=== PATIENT | female | born 1995 | race Caucasian/White ===

== ENCOUNTER 2021-12-07 09:41 | Inpatient (IN) ==
[2021-12-07] MEDS ORDERED: Ondansetron 4 MG/2 ML VIAL IVP PRN ×2 (10:07→22:52)
[2021-12-07] MEDS ORDERED: Lidocaine 1% 20 ML MDV INFILT PRN (10:07)
[2021-12-07] MEDS ORDERED: Famotidine 20 MG/2 ML VIAL IVP PRN (10:07)
[2021-12-07] MEDS ORDERED: Naloxone 0.4 MG/ML INJ IVP PRN (10:07)
[2021-12-07] MEDS ORDERED: Metoclopramide 10 MG/2 ML VIAL IVP PRN (10:07)
[2021-12-07] MEDS ORDERED: Ringers Solution, Lactated 1,000 ML IVC SCH (10:15)
[2021-12-07 10:33] LABS: Basophils % 0.3 %; Eosinophils # 0.1 K/mcL (0.0-0.6); Eosinophils % 1.1 %; Hematocrit 37.6 % (35.3-44.9); Immature Granulocytes % 0.6 % (0-4); Lymphocytes # 1.5 K/mcL (0.6-4.6); Lymphocytes % 15.5 %; Mean Corpuscular HGB Conc 34.6 g/dL (31.6-35.5); Mean Corpuscular Hemoglobin 32.3 pg (28.0-33.3); Mean Corpuscular Volume 93.5 fL (83.0-100.0); Mean Platelet Volume 10.3 fL (9.4-12.4); Monocytes # 0.5 K/mcL (0.0-1.3); Monocytes % 5.8 %; Neutrophils # 7.2 K/mcL (1.6-8.9); Platelet Count 168 K/mcL (140-400); Red Blood Count 4.02 M/mcL (3.82-4.97); Segmented Neutrophils % 76.7 %; White Blood Count 9.4 K/mcL (4.3-11.1)
[2021-12-07 10:42] LABS: Amphetamine Screen,Urine Negative ng/mL (Cutoff=1000); Barbiturate Screen,Urine Negative ng/mL (Cutoff=200); Benzodiazepines Screen,Urine Negative ng/mL (Cutoff=200); Cannabinoid Screen,Urine Negative ng/mL (Cutoff = 50); Cocaine Screen,Urine Negative ng/mL (Cutoff= 300); Opiate Screen,Urine Negative ng/mL (Cutoff=300); Phencyclidine Screen,Urine Negative ng/mL (Cutoff=25)
[2021-12-07] MEDS ORDERED: EPHEDrine sulfate 50 MG/10 ML VIAL IVP PRN (11:06)
[2021-12-07] MEDS ORDERED: Epidural Premix (fent/bupiv) 110 ML EP SCH (11:15)
[2021-12-07] MEDS ORDERED: miSOPROStoL 25 MCG TABLET PO PRN (11:15)
[2021-12-07] MEDS ORDERED: Oxytocin 30 UNIT/503 ML BAG IVC SCH (18:45)
[2021-12-07] MEDS: *HR* Nalbuphine 10 MG/ML AMPUL IV PRN ×2 (20:57→23:13)
[2021-12-08] MEDS ORDERED: Acetaminophen 325 MG TABLET PO SCH (07:19)
[2021-12-08] MEDS ORDERED: Measles/Mumps/Rubella Vacc 0.5 ML VIAL SQ PRN (07:19)
[2021-12-08] MEDS ORDERED: Benzocaine/Menthol 56 GM AEROSOL SPRAY TP PRN (07:19)
[2021-12-08] MEDS ORDERED: Lanolin 7 G OINT...G. TP PRN (07:19)
[2021-12-08] MEDS ORDERED: Rho Immune Globulin 1,500 UNIT SYRINGE IM PRN (07:19)
[2021-12-08] MEDS ORDERED: Ondansetron ODT 4 MG TAB.RAPDIS SL PRN (07:19)
[2021-12-08] MEDS ORDERED: Oxytocin 30 UNIT/503 ML BAG IVC SCH (07:19)
[2021-12-08] MEDS: Prenatal Vit/FA 1 EACH TABLET PO SCH (09:19)
[2021-12-08] MEDS: Ibuprofen 600 MG TABLET PO SCH ×2 (09:19→20:38)
[2021-12-08 09:28] VITALS: TEMP 98.4
[2021-12-09 03:58] LABS: Basophils % 0.3 %; Eosinophils # 0.2 K/mcL (0.0-0.6); Eosinophils % 1.2 %; Hematocrit 31.5 % (35.3-44.9); Hemoglobin 10.7 g/dL (11.5-15.4); Immature Granulocytes % 0.4 % (0-4); Lymphocytes # 2.2 K/mcL (0.6-4.6); Lymphocytes % 15.9 %; Mean Corpuscular Hemoglobin 31.9 pg (28.0-33.3); Mean Platelet Volume 10.7 fL (9.4-12.4); Monocytes # 0.8 K/mcL (0.0-1.3); Monocytes % 5.9 %; Neutrophils # 10.4 K/mcL (1.6-8.9); Platelet Count 144 K/mcL (140-400); Red Blood Count 3.35 M/mcL (3.82-4.97); Red Cell Distribution Width 13.4 % (11.5-14.5); Segmented Neutrophils % 76.3 %; White Blood Count 13.7 K/mcL (4.3-11.1)
[2021-12-09 08:08] VITALS: BP 106/65; PULSE 56; O2SAT 98
[2021-12-09] MEDS: Ibuprofen 600 MG TABLET PO SCH ×2 (08:10→08:25)
[2021-12-09] MEDS: Prenatal Vit/FA 1 EACH TABLET PO SCH ×2 (08:11→08:26)
== END 2021-12-09 14:23 | disposition home or self-care (01) | DRG 807 ==
LOC: 1NENULAB 09:41 → UNDODISIN 21:56 → 1NENUOBS 12-08 08:33
PROVIDERS: ADMIT Obstetrics & Gynecology; ATTEND Obstetrics & Gynecology